=== PATIENT | male | born 2000 | race Caucasian/White ===

== ENCOUNTER 2019-12-11 07:43 | Emergency (ER) | payer BC ==
[~2019-12-11] VITALS: Ht 170.2 cm; Wt 58.5 kg
[2019-12-11 07:47] VITALS: BP 11/69
--- NOTE | 2019-12-11 07:57 | NUR ---
HOSPITAL POLICY TO MAKE ANIMAL REPORT
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
--- NOTE | 2019-12-11 08:11 | NUR ---
ERMD AT BEDSIDE
[2019-12-11] MEDS ORDERED: ACETAMINOPHEN 325 MG TAB PO ONE (08:15)
[2019-12-11] MEDS ORDERED: AMOXIL/CLAVULANATE 875/125 MG 1 TAB PO ONE (08:15)
--- NOTE | 2019-12-11 08:19 | NUR ---
ANIMAL REPORT FAXED
[2019-12-11 09:17] VITALS: BP 120/62
--- NOTE | 2019-12-11 09:18 | NUR ---
Patient discharged with v/s stable. Written and verbal after care instructions given and explained. Patient alert, oriented and verbalized understanding of instructions. Ambulatory with steady gait. All questions addressed prior to discharge. ID band removed. Patient advised to follow up with PMD. Rx of AUGMENTIN,MOTRIN given. Patient educated on indication of medication including possible reaction and side effects. Opportunity to ask questions provided and answered.
== END 2019-12-11 09:18 | disposition home or self-care (01) ==
LOC: MED 07:43
DX: S61.451A Open bite of right hand, initial encounter (principal); L08.9 Local infection of the skin and subcutaneous tissue, unspecified; W54.0XXA Bitten by dog, initial encounter; Y93.89 Activity, other specified; Y92.89 Other specified places as the place of occurrence of the external cause; Y99.8 Other external cause status
CPT/HCPCS: 73130; 99283; Q0092